=== PATIENT | female | born 1960 | race Caucasian/White ===

== ENCOUNTER → 2022-09-05 | Outpatient (REF) | payer MEDICARE, MEDICAID ==
[2022-09-05 19:01] LABS: CREATININE, URINE 62.8 MG/DL
[2022-09-05 19:04] LABS: MALB URINE SIEMENS < 3.0 MG/L; MAU/CREAT RATIO 4.7 MCG/MG (0.0-30.0)
== END ==
LOC: M LAB REF 16:08
PROVIDERS: ATTEND Physician Assistant
DX: E11.65 Type 2 diabetes mellitus with hyperglycemia (principal); E11.51 Type 2 diabetes mellitus with diabetic peripheral angiopathy without gangrene; M14.672 Charcot's joint, left ankle and foot

== ENCOUNTER → 2023-01-03 | Outpatient (REF) | payer MEDICARE, MEDICAID ==
[~2023-01-03] MED LIST: ALPH600C PO; ASPI81TA26 PO; CALTTAB6 PO; FENO134C20 PO; FLAX100016 PO; GLIP5TAB20 PO; LISI20TA35 PO; METF-1191 PO; ROSU20TA61 PO; SYNT112T2 PO; TIRZ7.5P SQ
== END ==
LOC: M SFHCWAGY 17:49
PROVIDERS: ATTEND Nurse Practitioner Family
DX: Z12.4 Encounter for screening for malignant neoplasm of cervix (principal); N95.2 Postmenopausal atrophic vaginitis
CPT/HCPCS: 87624; G0123

== ENCOUNTER → 2023-01-11 | Day surgery (SDC) | payer MEDICARE, MEDICAID ==
[~2023-01-11] VITALS: Ht 172.7 cm; Wt 116.7 kg
[~2023-01-11] MED LIST changes: +LIDOCAINE 2% 100MG/5ML SDV (FOR ANES.) As Ordered ONE; +NS 1,000 ML IV ONE; +ePHEDrine SULFATE 25 MG/5 ML(5MG/ML) SYRINGE As Ordered ONE; +propofoL 200 MG/20 ML VIAL As Ordered ONE
[2023-01-11 08:24] VITALS: TEMP 97.1
[2023-01-11 09:01] VITALS: BP 117/56; O2SAT 99
== END | disposition home or self-care (01) ==
LOC: M OPP 07:26
PROVIDERS: ATTEND Surgery
DX: Z12.11 Encounter for screening for malignant neoplasm of colon (principal); Z12.12 Encounter for screening for malignant neoplasm of rectum; K62.1 Rectal polyp; K57.30 Diverticulosis of large intestine without perforation or abscess without bleeding; E11.9 Type 2 diabetes mellitus without complications; I10 Essential (primary) hypertension; E78.00 Pure hypercholesterolemia, unspecified; E03.9 Hypothyroidism, unspecified; Z90.49 Acquired absence of other specified parts of digestive tract; Z79.82 Long term (current) use of aspirin; Z79.899 Other long term (current) drug therapy; Z79.84 Long term (current) use of oral hypoglycemic drugs; Z79.890 Hormone replacement therapy; K21.9 Gastro-esophageal reflux disease without esophagitis